=== PATIENT | male | born 1985 | race African-American/Black ===

== ENCOUNTER 2021-01-21 16:02 | Emergency (ER) | payer SELFPAY ==
[~2021-01-21] VITALS: Ht 170.2 cm; Wt 67.4 kg
[2021-01-21 17:18] LABS: BILIRUBIN,URINE NEGATIVE (NEG); CLARITY,URINE CLEAR; COLOR,URINE YELLOW; NITRITE,URINE NEGATIVE (NEG); PH,URINE 5.5 (<5.0-8.0); PROTEIN,URINE NEGATIVE (NEG-TRACE); UROBILINOGEN,URINE 0.2 mg/dL (0.2 mg/dL)
[2021-01-21 17:24] VITALS: BP 107/62
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
[2021-01-21 17:37] LABS: BACTERIA,URINE FEW /HPF (0-FEW)
[2021-01-21 17:38] LABS: RBC,URINE 0 /HPF (0-2)
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
[2021-01-21] MEDS ORDERED: BISACODYL 5 MG TABLET.DR. PO STA (18:53)
[2021-01-21] MEDS ORDERED: MAGNESIUM CITRATE 296 ML SOLUTION. PO ONE (19:00)
[2021-01-21] MEDS ORDERED: CYCL10TA2 PO (19:03)
[2021-01-21] MEDS ORDERED: POLY119P4 PO (19:03)
[2021-01-21] MEDS ORDERED: METH4TAB2 PO (19:03)
[2021-01-21] MEDS ORDERED: DICL50TA2 PO (19:03)
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
== END 2021-01-21 19:11 | disposition home or self-care (01) ==
LOC: ER 16:02
DX: S22.080A Wedge compression fracture of T11-T12 vertebra, initial encounter for closed fracture (principal); S32.010A Wedge compression fracture of first lumbar vertebra, initial encounter for closed fracture; S13.9XXA Sprain of joints and ligaments of unspecified parts of neck, initial encounter; K59.00 Constipation, unspecified; F17.200 Nicotine dependence, unspecified, uncomplicated; F10.20 Alcohol dependence, uncomplicated; Y90.9 Presence of alcohol in blood, level not specified; V89.2XXA Person injured in unspecified motor-vehicle accident, traffic, initial encounter; Y93.89 Activity, other specified; Y92.89 Other specified places as the place of occurrence of the external cause; Y99.8 Other external cause status
CPT/HCPCS: 72040; 72072; 74176; 81001; 87491; 87591; 99285